=== PATIENT | female | born 1950 | race Two or more races ===

== ENCOUNTER 2024-04-23 15:45 | Emergency (ER) | payer OTHER ==
[~2024-04-23] VITALS: Ht 162.6 cm; Wt 68.0 kg
[2024-04-23 16:13] VITALS: BP 160/80; O2SAT 98
[2024-04-23 17:54] LABS: PH,URINE 5.5 (5.0-8.0); URINE APPEARANCE Clear; URINE BILIRRUBIN Negative (NEGATIVE); URINE BLOOD Negative; URINE COLOR Yellow; URINE GLUCOSE Negative (NEGATIVE); URINE KETONE Negative (NEGATIVE); URINE LEUKOCYTE Trace; URINE NITRATE Negative; URINE PROTEIN Negative (NEGATIVE); URINE UROBILINOGEN 0.2 E.U./dl
[2024-04-23 17:57] LABS: URINE EPITHELIAL CELLS 2.3 uL (0.0-38.8); URINE WBC 36.6 uL (0.0-23.2)
[2024-04-23 18:00] LABS: URINE BACTERIA 1.2 uL (0.0-1933); URINE RBC 0.1 uL (0.0-20.8)
[2024-04-23] MEDS ORDERED: DEXAMETHASONE SODIUM PHOSPHATE 4 MG/ML VIAL IM STA (18:20)
[2024-04-23] MEDS ORDERED: CEFTRIAXONE SODIUM 1,000 MG VIAL IM STA (18:21)
[2024-04-23] MEDS ORDERED: CIPRO500 MG PO (18:26)
== END 2024-04-23 19:23 | disposition home or self-care (01) ==
LOC: ER 15:46
DX: N39.0 Urinary tract infection, site not specified (principal)

== ENCOUNTER 2025-05-13 17:27 | Emergency (ER) | payer OTHER ==
[~2025-05-13] VITALS: Ht 162.6 cm; Wt 68.0 kg
[~2025-05-13 17:27] MED LIST: CIPRO500 MG PO
[2025-05-13] MEDS ORDERED: KETOROLAC TROMETHAMINE 30 MG VIAL IM ONE (19:45)
[2025-05-13] MEDS ORDERED: CEFTRIAXONE SODIUM 500 MG VIAL IM ONE (19:45)
[2025-05-13] MEDS ORDERED: KETOROLAC TROMETHAMINE 30 MG VIAL ONE (20:44)
[2025-05-13 22:18] LABS: URINE APPEARANCE Clear; URINE BILIRRUBIN Negative (NEGATIVE); URINE BLOOD Moderate; URINE COLOR Yellow; URINE GLUCOSE Negative (NEGATIVE); URINE KETONE Negative (NEGATIVE); URINE LEUKOCYTE Small; URINE NITRATE Negative; URINE PROTEIN Negative (NEGATIVE); URINE UROBILINOGEN 0.2 E.U./dl
[2025-05-13 22:23] LABS: URINE BACTERIA 34.8 uL (0.0-1933); URINE CAST 0.00 uL (0.0-1.40); URINE EPITHELIAL CELLS 0.6 uL (0.0-38.8); URINE RBC 23.0 uL (0.0-20.8); URINE WBC 33.1 uL (0.0-23.2)
[2025-05-13] MEDS ORDERED: MACROBID 100 M100 MG PO (23:19)
[2025-05-13] MEDS ORDERED: PYRIDIUM200 MG PO (23:19)
== END 2025-05-14 00:24 | disposition home or self-care (01) ==
LOC: ER 17:27
PROVIDERS: General Practice
DX: N39.0 Urinary tract infection, site not specified (principal)